=== PATIENT | male | born 1990 | race Two or more races ===

== ENCOUNTER 2024-12-02 21:52 | Emergency (ER) | payer OTHER ==
[~2024-12-02] VITALS: Ht 172.7 cm; Wt 81.6 kg
[2024-12-02] MEDS ORDERED: ONDANSETRON 4 MG TAB.RAPDIS ONE (22:56)
[2024-12-02] MEDS: ONDANSETRON 4 MG TAB.RAPDIS SL ONE (22:56)
[2024-12-02] MEDS ORDERED: IBUP-1490 PO (23:55)
[2024-12-02] MEDS ORDERED: ONDA4TAB5 PO (23:55)
[2024-12-03 00:03] VITALS: BP 132/78; TEMP 98.6; O2SAT 98
== END 2024-12-03 00:04 | disposition home or self-care (01) ==
LOC: ER 22:19
DX: S09.8XXA Other specified injuries of head, initial encounter (principal); R11.2 Nausea with vomiting, unspecified; V43.52XA Car driver injured in collision with other type car in traffic accident, initial encounter; Y93.89 Activity, other specified; Y92.488 Other paved roadways as the place of occurrence of the external cause; Y99.8 Other external cause status
CPT/HCPCS: 99284; 72125; 70450; Q0162

== ENCOUNTER 2024-12-12 21:26 | Emergency (ER) | payer OTHER ==
[~2024-12-12] VITALS: Ht 172.7 cm; Wt 77.1 kg
[~2024-12-12 21:26] MED LIST: IBUP-1490 PO; ONDA4TAB5 PO
[2024-12-12] MEDS ORDERED: TDAP [DIPH/PERTUSSIS/TET] 0.5 ML VIAL IM ONE (23:40)
[2024-12-12] MEDS ORDERED: KETOROLAC TROMETHAMINE INJ 30 MG/ML VIAL ONE (23:40)
[2024-12-12] MEDS: TDAP [DIPH/PERTUSSIS/TET] 0.5 ML VIAL IM ONE (23:42)
[2024-12-12] MEDS: KETOROLAC TROMETHAMINE INJ 30 MG/ML VIAL IM ONE (23:42)
[2024-12-13 00:59] VITALS: BP 126/70; TEMP 98.4; O2SAT 100
== END 2024-12-13 00:59 | disposition left against medical advice (07) ==
LOC: ER 21:27
DX: S00.83XA Contusion of other part of head, initial encounter (principal); V43.52XA Car driver injured in collision with other type car in traffic accident, initial encounter; Y93.89 Activity, other specified; Y92.410 Unspecified street and highway as the place of occurrence of the external cause; Y99.8 Other external cause status
CPT/HCPCS: 70450-TC; 72125-TC; 73090-TC; 73110; 73130-TC; 73590-TC; 90715; J1885